=== PATIENT | female | born 1995 | race Caucasian/White ===

== ENCOUNTER 2018-08-23 11:30 | Emergency (ER) | payer MEDICAID ==
[~2018-08-23] VITALS: Ht 147.3 cm; Wt 59.0 kg
--- NOTE | 2018-08-23 12:20 | NUR ---
PT SELF-CATHETERIZED SELF THROUGH THE UMBILICUS FOR URINE SAMPLE.
--- NOTE | 2018-08-23 12:23 | NUR ---
SARAVANAN BOLANOS AT BEDSIDE FOR MSE.
[2018-08-23 12:39] LABS: *BILIRUBIN,URIN NEGATIVE (NEGATIVE); *BLOOD, URINE 2+ (NEGATIVE); *CLARITY,URINE CLOUDY (CLEAR); *COLOR,URINE YELLOW (YELLOW); *KETONES,URINE NEGATIVE (NEGATIVE); *UROBILINOGEN,URINE 0.2 E.U./dl (NORMAL); LEUKOCYTE ESTERASE ,URINE 3+ (NEGATIVE); NITRITE, URINE NEGATIVE (NEGATIVE); PH,URINE 7.5 (5.0-8.0); UGLUCOSE NEGATIVE (NEGATIVE)
[2018-08-23 12:41] LABS: *URINE HCG, QUAL NEGATIVE (NEGATIVE)
[2018-08-23 12:47] LABS: BACTERIA,URINE MANY /HPF (NONE SEEN); RBC,URINE 20-50 /HPF (0-3); SQUAMOUS EPITHELIAL CELL,UR MANY /HPF (NONE SEEN); WBC,URINE TNTC /HPF (0-3)
--- NOTE | 2018-08-23 13:06 | NUR ---
Patient discharged to home in stable conditon. Written and verbal after care instructions given. Patient verbalizes understanding of instructions. ALL BELONGINGS W/ PT.
[2018-08-23 13:10] VITALS: BP 121/72
== END 2018-08-23 13:11 | disposition home or self-care (01) ==
LOC: ER 11:30
DX: N39.0 Urinary tract infection, site not specified (principal)
CPT/HCPCS: 84703; 87077; 87086; A4663

== ENCOUNTER 2020-06-09 10:50 | Emergency (ER) | payer MEDICAID, OTHER ==
[~2020-06-09] VITALS: Ht 147.3 cm; Wt 54.4 kg
--- NOTE | 2020-06-09 11:40 | NUR ---
There still are no ER beds available, MSE done at triage with professor of finance (MICHELLE Walton).
[2020-06-09] MEDS ORDERED: ACETAMINOPHEN 650 MG/20.3 ML LIQUID UDC PO ONE (11:45)
[2020-06-09] MEDS ORDERED: ACETAMINOPHEN 325 MG TABLET ONE (12:05)
[2020-06-09 12:24] LABS: BASOPHILS # (AUTO) 0.2 K/uL (0.0-8.0); BASOPHILS % (AUTO) 1.8 % (0.0-2.0); EOSINOPHILS # (AUTO) 0.4 K/uL (0.0-0.7); EOSINOPHILS % (AUTO) 4.8 % (0.0-7.0); HEMATOCRIT 37.7 % (31.2-41.9); HEMOGLOBIN 12.1 g/dL (10.9-14.3); LYMPHOCYTES # (AUTO) 1.3 K/uL (20.0-40.0); LYMPHOCYTES % (AUTO) 15.6 % (20.5-51.5); MEAN CORPUSCULAR HEMOGLOBIN 26.8 uug (24.7-32.8); MEAN CORPUSCULAR HGB CONC 32 g/dL (32.3-35.6); MEAN CORPUSCULAR VOLUME 83.6 fL (75.5-95.3); MONOCYTES # (AUTO) 0.4 K/uL (2.0-10.0); NEUTROPHILS # (AUTO) 6.2 K/uL (1.8-8.9); NEUTROPHILS % (AUTO) 72.8 % (38.5-71.5); PLATELET COUNT (AUTO) 297 K/uL (179-408); RED BLOOD CELL COUNT(AUTO) 4.52 MIL/uL (3.63-4.92); WHITE BLOOD COUNT (AUTO) 8.5 K/uL (3.8-11.8)
[2020-06-09 12:37] LABS: CARBON DIOXIDE 20 mmol/L (21-32); CHLORIDE 103 mmol/L (98-107); CREATININE 0.4 mg/dL (0.6-1.3); GLUCOSE 96 mg/dL (74-106); UREA NITROGEN, BLOOD 16 mg/dL (7-18)
[2020-06-09 13:15] LABS: *URINE HCG, QUAL NEG (NEGATIVE)
--- NOTE | 2020-06-09 16:27 | NUR ---
Patient discharged to home in stable condition. Written and verbal after care instructions given. Patient verbalizes understanding of instructions. Stressed follow up or return to ER for worsening s/s.
== END 2020-06-09 16:28 | disposition home or self-care (01) ==
LOC: ER 10:50
DX: N63.21 Unspecified lump in the left breast, upper outer quadrant (principal); Q05.4 Unspecified spina bifida with hydrocephalus; Z98.2 Presence of cerebrospinal fluid drainage device; K59.2 Neurogenic bowel, not elsewhere classified; F79 Unspecified intellectual disabilities
CPT/HCPCS: 36415; 76642; 84703; 85025; A4663

== ENCOUNTER 2020-10-20 11:18 | Inpatient (IN) | payer OTHER ==
[~2020-10-20] VITALS: Ht 152.4 cm; Wt 54.4 kg
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
[2020-10-20] MEDS ORDERED: IV NORMAL SALINE 1000 ML BAG IV ONE (12:00)
[2020-10-20] MEDS ORDERED: ONDANSETRON 4 MG/2 ML VIAL IV ONE (12:00)
--- NOTE | 2020-10-20 12:30 | NUR ---
Examine by r/oo tanisha ineserted ango cath# 20 on ac blood drow blood drow cxray done ivf ns wide open infused and patent zofran 4mg ivp given
[2020-10-20] MEDS ORDERED: ONDANSETRON 4 MG/2 ML VIAL ONE (12:35)
[2020-10-20 12:55] LABS: BASOPHILS % (AUTO) 0.1 % (0.0-2.0); EOSINOPHILS # (AUTO) 0.1 K/uL (0.0-0.7); EOSINOPHILS % (AUTO) 1.3 % (0.0-7.0); HEMATOCRIT 35.6 % (31.2-41.9); HEMOGLOBIN 11.4 g/dL (10.9-14.3); LYMPHOCYTES # (AUTO) 1.1 K/uL (20.0-40.0); LYMPHOCYTES % (AUTO) 20.2 % (20.5-51.5); MEAN CORPUSCULAR HEMOGLOBIN 26.3 uug (24.7-32.8); MEAN CORPUSCULAR HGB CONC 32 g/dL (32.3-35.6); MEAN CORPUSCULAR VOLUME 82.3 fL (75.5-95.3); MONOCYTES # (AUTO) 0.3 K/uL (2.0-10.0); MONOCYTES % (AUTO) 5.8 % (0.0-11.0); NEUTROPHILS # (AUTO) 3.9 K/uL (1.8-8.9); NEUTROPHILS % (AUTO) 72.6 % (38.5-71.5); PLATELET COUNT (AUTO) 289 K/uL (179-408); RED BLOOD CELL COUNT(AUTO) 4.32 MIL/uL (3.63-4.92); WHITE BLOOD COUNT (AUTO) 5.4 K/uL (3.8-11.8)
[2020-10-20 13:01] LABS: CARBON DIOXIDE 23 mmol/L (21-32); CHLORIDE 107 mmol/L (98-107); CREATININE 0.5 mg/dL (0.6-1.3); GLUCOSE 96 mg/dL (74-106); POTASSIUM 4.5 mmol/L (3.5-5.1); UREA NITROGEN, BLOOD 23 mg/dL (7-18)
--- NOTE | 2020-10-20 13:04 | NUR ---
received COVID result from Rhona from lab: Result - covid (+)
[2020-10-20 13:07] LABS: ALANINE AMINOTRANSFERASE 13 U/L (14-59); ALKALINE PHOSPHATASE 76 U/L (50-136); ASPARTATE AMINOTRANSFERASE 19 U/L (15-37); BILIRUBIN,DIRECT < 0.1 mg/dL (0.0-0.2); BILIRUBIN,TOTAL 0.2 mg/dL (0.2-1.0); TOTAL PROTEIN, SERUM 8.5 g/dL (6.4-8.2)
--- NOTE | 2020-10-20 14:00 | NUR ---
incerted I&O CATH FR # 15 SSUPRABUBIC CATHETER NO SDIFFECLUTY DRANING URIN COUDY YELLOW COLOR UA ND UC SENT TO LAB
--- NOTE | 2020-10-20 14:30 | NUR ---
IV 1000ml NS finished infusing at this time.
--- NOTE | 2020-10-20 15:00 | NUR ---
pt refused to be ADMITED INPT AND REQUSTED TO SIGN aAMA
[2020-10-20 15:36] LABS: *CLARITY,URINE TURBID (CLEAR); *COLOR,URINE YELLOW (YELLOW)
[2020-10-20 15:37] LABS: *BILIRUBIN,URIN NEGATIVE (NEGATIVE); *BLOOD, URINE 2+ (NEGATIVE); *KETONES,URINE NEGATIVE (NEGATIVE); *UROBILINOGEN,URINE 0.2 E.U./dl (NORMAL); LEUKOCYTE ESTERASE ,URINE 3+ (NEGATIVE); NITRITE, URINE NEGATIVE (NEGATIVE); UGLUCOSE NEGATIVE (NEGATIVE)
[2020-10-20 15:43] LABS: BACTERIA,URINE MANY /HPF (NONE SEEN); SQUAMOUS EPITHELIAL CELL,UR MODERATE /HPF (NONE SEEN); URINE AMORPHOUS PHOSPHATES MODERATE /HPF; WBC,URINE 20-50 /HPF (0-3)
[2020-10-20] MEDS ORDERED: IV NORMAL SALINE 250 ML IV ONE (15:58)
[2020-10-20] MEDS ORDERED: SWABABLE VALVE TRANSFER SET EA MC ONE (15:58)
[2020-10-20] MEDS ORDERED: IOHEXOL 350 100 ML INFUS..BTL ONE (15:58)
[2020-10-20] MEDS ORDERED: levoFLOXacin 500 MG TABLET PO ONE (16:15)
[2020-10-20] MEDS ORDERED: levoFLOXacin 500 MG TABLET ONE (16:29)
--- NOTE | 2020-10-20 16:45 | NUR ---
pt sign concent for CTA IV CATHETER #2 ON LT FOR ARM PATENT WILL
--- NOTE | 2020-10-20 17:11 | NUR ---
to cta via arelis cooney vs
[2020-10-20] MEDS ORDERED: HYDROCODONE/APAP 10-325 MG TABLET PO ONE (18:15)
--- NOTE | 2020-10-20 18:58 | NUR ---
PT HAD ROOM PLAN TO be admit inpt
--- NOTE | 2020-10-20 19:00 | NUR ---
HAND OFF TO MARLENI MARTINEZ
--- NOTE | 2020-10-20 19:00 | NUR ---
Note [email or web address] in ED - 10/20/20 at 1915 by BRANDY Recieved pt in bed with mother, patient is noted to be calm.
--- NOTE | 2020-10-20 19:05 | NUR ---
Patricia hardwick in ED - 10/20/[address] at [address] Maldonado at bedside, examined both nostrils, no foreign body noted. Mother at bedside.
[2020-10-20] MEDS ORDERED: ACETAMINOPHEN 325 MG TABLET PO ONE (19:45)
[2020-10-20] MEDS ORDERED: ACETAMINOPHEN 325 MG TABLET ONE (19:53)
--- NOTE | 2020-10-20 20:38 | NUR ---
Gave report to Ben from tele, pt going to room 318.
--- NOTE | 2020-10-20 21:00 | NUR ---
Patient received from ER. Awake, alert and oriented x 3 to person, place, and time. Patient on TELE, sinus tach. Comfortable on room air, saturating at 99%. No reports of shortness of breath. Skin intact. 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 Pt does self catheterization every 3 hours. Bowel sounds active in all quadrants. No reports of pain at this time. No signs of distress. Bed in low and locked position. Safety precautions in place. Call light within reach.
[2020-10-20 21:50] VITALS: BP 117/89
[2020-10-20] MEDS ORDERED: ACETAMINOPHEN 325 MG TABLET PO PRN (22:00)
[2020-10-20] MEDS ORDERED: ALBUTEROL SULFATE 8 GM HFA.AER.AD IH PRN (22:00)
[2020-10-20] MEDS ORDERED: ONDANSETRON 4 MG/2 ML VIAL IV PRN (22:00)
[2020-10-20] MEDS: ENOXAPARIN SODIUM 40 MG/0.4 ML DISP.SYRIN SQ SCH (23:18)
[2020-10-21 00:05] VITALS: BP 105/74
[2020-10-21 04:25] VITALS: BP 118/83
[2020-10-21 06:17] LABS: BASOPHILS % (AUTO) 0.4 % (0.0-2.0); EOSINOPHILS # (AUTO) 0.1 K/uL (0.0-0.7); EOSINOPHILS % (AUTO) 1.3 % (0.0-7.0); HEMATOCRIT 31.4 % (31.2-41.9); HEMOGLOBIN 10.3 g/dL (10.9-14.3); LYMPHOCYTES # (AUTO) 1.1 K/uL (20.0-40.0); LYMPHOCYTES % (AUTO) 26.9 % (20.5-51.5); MEAN CORPUSCULAR HEMOGLOBIN 26.5 uug (24.7-32.8); MEAN CORPUSCULAR HGB CONC 33 g/dL (32.3-35.6); MEAN CORPUSCULAR VOLUME 80.8 fL (75.5-95.3); MONOCYTES # (AUTO) 0.3 K/uL (2.0-10.0); NEUTROPHILS # (AUTO) 2.5 K/uL (1.8-8.9); NEUTROPHILS % (AUTO) 63.4 % (38.5-71.5); PLATELET COUNT (AUTO) 275 K/uL (179-408); RED BLOOD CELL COUNT(AUTO) 3.88 MIL/uL (3.63-4.92)
[2020-10-21 06:26] LABS: BILIRUBIN,TOTAL 0.2 mg/dL (0.2-1.0); CREATININE 0.6 mg/dL (0.6-1.3); MAGNESIUM 2.1 mg/dL (1.8-2.4); PHOSPHOROUS 2.8 mg/dL (2.5-4.9); POTASSIUM 4.1 mmol/L (3.5-5.1); TOTAL PROTEIN, SERUM 7.4 g/dL (6.4-8.2)
--- NOTE | 2020-10-21 06:57 | NUR ---
Patient is awake, alert and oriented x 3. Patient slept well. On TELE, sinus rhythm. comfortable on room air. No reports of pain or shortness of breath. Patient did a self catheterization over night, output of 350ml. Safety precautions in place. Call light within reach.
[2020-10-21 11:54] VITALS: BP 113/80
[2020-10-21] MEDS ORDERED: CHOL500062 PO (13:36)
[2020-10-21] MEDS: levoFLOXacin 500 MG TABLET PO SCH (15:08)
[2020-10-21 15:33] VITALS: BP 126/88
--- NOTE | 2020-10-21 16:06 | NUR ---
Pt awake, alert, able to verbalize needs. Pt denies pain/discomfort at this time. No acute distress, no SOB noted. VSS. Pt O2 saturation 99% on RA. Pt afebrile. Pt able to self-catheterize via navel opening, output documented, urine appears yellow with some sediment noted. Bowel sounds active, no BM. L FA 20 g and R AC 20 g PIVs intact and patent. Dr. Kay and Dr. Robby Cox at bedside today, examined pt, report given. Safety measures and fall precautions in place. Call light and belongings within reach. Continue plan of care.
--- NOTE | 2020-10-21 18:50 | NUR ---
Pt finishing dinner, no acute distress. Pt stated she missed her mother. Encouraged pt to expressed feelings, reassurance provided PRN. Pt denies pain/discomfort. Safety maintained. Will endorse to production supervisor off shift nurse for continuity of care.
[2020-10-21 20:15] VITALS: BP 112/79
[2020-10-21] MEDS: ENOXAPARIN SODIUM 40 MG/0.4 ML DISP.SYRIN SQ SCH (20:43)
[2020-10-21] MEDS ORDERED: FLEET ENEMA 133 ML BOTTLE RC PRN (23:15)
[2020-10-22 00:03] VITALS: BP 94/69
[2020-10-22 04:15] VITALS: BP 109/73
--- NOTE | 2020-10-22 06:55 | NUR ---
Patient resting in bed. No s/s of acute distress noted at this time. On RA denies SOB, O2 Sat @ 99%. interventional nurse in place, sinus rhythm and tachy to 110s. Notified Eris Saenz DNP of patients routine fleet enema via ostomy and new orders given to continue routine enema. Offered enema to patient, refused to have administered until later in the morning or afternoon, will endorse to oncoming nurse. Safety measures and isolation precautions in place.
[2020-10-22 08:25] VITALS: BP 106/69
[2020-10-22] MEDS ORDERED: CHOLECALCIFEROL 1,000 UNIT TABLET PO SCH (09:00)
[2020-10-22 11:48] VITALS: BP 92/54
[2020-10-22 14:30] VITALS: BP 113/75
[2020-10-22] MEDS: levoFLOXacin 500 MG TABLET PO SCH (16:25)
--- NOTE | 2020-10-22 19:20 | NUR ---
Discharge instructions provided to the patient with verbalized understanding. Discharge papers signed by and given to the patient. Patient is alert, oriented x 3, not in any form of distress on room air. She denies any pain or discomfort. All belongings well accounted for. Assisted patient to the lobby via wheelchair. Discharged patient to home picked up by brother Said via private car.
== END 2020-10-22 19:15 | disposition home or self-care (01) | DRG 137 ==
LOC: ER 11:18 → TELE3 20:20
PROVIDERS: ADMIT Hospitalist
DX: U07.1 COVID-19 (principal); J12.82 Pneumonia due to coronavirus disease 2019; G71.09 Other specified muscular dystrophies; G82.20 Paraplegia, unspecified; M41.9 Scoliosis, unspecified; K59.2 Neurogenic bowel, not elsewhere classified; N13.6 Pyonephrosis; D64.9 Anemia, unspecified; B36.0 Pityriasis versicolor; E04.1 Nontoxic single thyroid nodule; Z98.2 Presence of cerebrospinal fluid drainage device; Z87.440 Personal history of urinary (tract) infections; M81.0 Age-related osteoporosis without current pathological fracture; F79 Unspecified intellectual disabilities; N31.9 Neuromuscular dysfunction of bladder, unspecified; Q05.4 Unspecified spina bifida with hydrocephalus; B96.20 Unspecified Escherichia coli [E. coli] as the cause of diseases classified elsewhere
CPT/HCPCS: 36415; 70450; 71045; 71275; 83605; 83615; 83735; 84100; 85025; 85730; 86140; 86403; 87040; 87070; 87077; 87086; 93005; C1758; G0378; J1650; J2405; J3535; J7050; Q9967

== ENCOUNTER 2021-09-11 09:27 | Emergency (ER) | payer OTHER ==
[~2021-09-11] VITALS: Ht 149.9 cm; Wt 54.4 kg
[~2021-09-11 09:27] MED LIST: CHOL500062 PO
--- NOTE | 2021-09-11 09:38 | NUR ---
Dr Dickson at the bedside for MSE.
--- NOTE | 2021-09-11 09:38 | NUR ---
[email or web address], medical screening exam in progress
[2021-09-11] MEDS ORDERED: KETOROLAC TROMETHAMINE 30 MG INJ ONE (09:52)
[2021-09-11] MEDS ORDERED: KETOROLAC TROMETHAMINE 15 MG INJ IVP ONE (10:00)
[2021-09-11] MEDS ORDERED: IV NORMAL SALINE 500 ML BAG IV ONE (10:00)
[2021-09-11 10:03] LABS: HEMATOCRIT 43.3 % (31.2-41.9); MEAN CORPUSCULAR HEMOGLOBIN 26.1 uug (24.7-32.8); MEAN CORPUSCULAR VOLUME 78.6 fL (75.5-95.3); PLATELET COUNT (AUTO) 515 K/uL (179-408)
[2021-09-11 10:06] LABS: *BILIRUBIN,URIN NEGATIVE (NEGATIVE); *BLOOD, URINE 3+ (NEGATIVE); *CLARITY,URINE CLOUDY (CLEAR); *COLOR,URINE YELLOW (YELLOW); *KETONES,URINE TRACE (NEGATIVE); *UROBILINOGEN,URINE 0.2 E.U./dl (NORMAL); LEUKOCYTE ESTERASE ,URINE 3+ (NEGATIVE); NITRITE, URINE NEGATIVE (NEGATIVE); PH,URINE 7.5 (5.0-8.0); UGLUCOSE NEGATIVE (NEGATIVE)
--- NOTE | 2021-09-11 10:15 | NUR ---
Patient is resting comfortably on gurney with [email or web address].
[2021-09-11 10:29] LABS: *URINE HCG, QUAL NEG (NEGATIVE)
[2021-09-11 10:32] LABS: POTASSIUM 4.6 mmol/L (3.5-5.1)
[2021-09-11 10:38] LABS: BILIRUBIN,DIRECT 0.1 mg/dL (0.0-0.2); BILIRUBIN,TOTAL 0.4 mg/dL (0.2-1.0); TOTAL PROTEIN, SERUM 9.6 g/dL (6.4-8.2)
[2021-09-11 11:40] LABS: WBC,URINE 20-50 /HPF (0-3)
[2021-09-11 11:41] LABS: BACTERIA,URINE MODERATE /HPF (NONE SEEN); SQUAMOUS EPITHELIAL CELL,UR MODERATE /HPF (NONE SEEN)
[2021-09-11 11:42] LABS: TRIPLE PHOSPHATE CRYSTAL,UR FEW /HPF (NONE SEEN); URINE AMORPHOUS PHOSPHATES MANY /HPF
--- NOTE | 2021-09-11 11:48 | NUR ---
Copies of ER tests' results were printed and handed to patient's mother.
[2021-09-11] MEDS ORDERED: NITR100C6 PO (11:51)
--- NOTE | 2021-09-11 12:10 | NUR ---
IV removed. Catheter intact and site benign. Pressure and 4x4 gauze applied to site. No bleeding noted. Patient discharged to home in stable condition. Written and verbal after care instructions given to patient and mother. Patient and family verbalized understanding and compliance of instructions. Stressed follow up with primary doctor or return to ER for worsening s/s.
== END 2021-09-11 12:10 | disposition home or self-care (01) ==
LOC: ER 09:27
DX: N39.0 Urinary tract infection, site not specified (principal); K56.7 Ileus, unspecified; E86.0 Dehydration; Z87.440 Personal history of urinary (tract) infections; N13.30 Unspecified hydronephrosis; N20.0 Calculus of kidney; M41.9 Scoliosis, unspecified; R29.90 Unspecified symptoms and signs involving the nervous system
CPT/HCPCS: 36415; 74176; 80048; 80076; 81001; 83690; 84703; 85025; 87086; 96374; 99284; J1885; 87077; A4663; J7040

== ENCOUNTER 2024-02-09 10:00 | Emergency (ER) | payer OTHER ==
[~2024-02-09] VITALS: Ht 152.4 cm; Wt 38.6 kg
[~2024-02-09 10:00] MED LIST changes: +NITR100C6 PO
[2024-02-09 10:17] VITALS: O2SAT 99
[2024-02-09] MEDS ORDERED: METO50TA16 PO (10:33)
[2024-02-09] MEDS ORDERED: NEOMY/BACITRA/POLYMYXIN B OINT UD PACKET TP ONE (10:57)
[2024-02-09] MEDS ORDERED: CLOT15CR5 TP (10:58)
[2024-02-09] MEDS ORDERED: MUPI15CR TP (10:58)
== END 2024-02-09 11:18 | disposition home or self-care (01) ==
LOC: ER 10:00
DX: L89.321 Pressure ulcer of left buttock, stage 1 (principal); L22 Diaper dermatitis; Z98.890 Other specified postprocedural states; Z79.899 Other long term (current) drug therapy
CPT/HCPCS: A4606; A4663

== ENCOUNTER 2024-05-12 10:15 | Emergency (ER) | payer OTHER ==
[~2024-05-12] VITALS: Ht 121.9 cm; Wt 25.4 kg
[~2024-05-12 10:15] MED LIST changes: +CLOT15CR5 TP; +METO50TA16 PO; +MUPI15CR TP; -NITR100C6 PO
[2024-05-12 11:26] LABS: BASOPHILS # (AUTO) 0.1 K/UL (0.0-0.2); BASOPHILS % (AUTO) 0.6 % (0.0-2.0); EOSINOPHILS # (AUTO) 0.1 K/uL (0.0-0.7); HEMATOCRIT 31.4 % (31.2-41.9); HEMOGLOBIN 9.5 g/dL (10.9-14.3); LYMPHOCYTES # (AUTO) 2.1 K/uL (0.8-4.8); LYMPHOCYTES % (AUTO) 16.6 % (20.5-51.5); MEAN CORPUSCULAR HEMOGLOBIN 21.1 uug (24.7-32.8); MEAN CORPUSCULAR HGB CONC 30 g/dL (32.3-35.6); MEAN CORPUSCULAR VOLUME 69.4 fL (75.5-95.3); MONOCYTES # (AUTO) 0.6 K/uL (0.1-1.30); MONOCYTES % (AUTO) 4.8 % (0.0-11.0); NEUTROPHILS # (AUTO) 9.6 K/uL (1.8-8.9); PLATELET COUNT (AUTO) 700 K/uL (179-408); RED BLOOD CELL COUNT(AUTO) 4.53 MIL/uL (3.63-4.92); RED CELL DISTRIBUTION WIDTH 25.5 % (12.3-17.7); WHITE BLOOD COUNT (AUTO) 12.5 K/uL (3.8-11.8)
[2024-05-12 11:40] LABS: ALBUMIN 2.6 g/dL (3.4-5.0); BILIRUBIN,DIRECT 0.1 mg/dL (0.0-0.2); BILIRUBIN,TOTAL 0.2 mg/dL (0.2-1.0); CALCIUM 9.8 mg/dL (8.5-10.1); CREATININE 0.6 mg/dL (0.6-1.3); POTASSIUM 4.5 mmol/L (3.5-5.1); TOTAL PROTEIN, SERUM 9.4 g/dL (6.4-8.2)
[2024-05-12 12:49] LABS: DIFFERENTIAL COMMENT 1
[2024-05-12] MEDS ORDERED: METRONIDAZOLE 500 MG TABLET ONE (13:08)
[2024-05-12] MEDS ORDERED: levoFLOXacin 500 MG/D5W 100 ML ONE (13:08)
[2024-05-12] MEDS: METRONIDAZOLE 500 MG TABLET PO ONE (13:16)
[2024-05-12] MEDS: levoFLOXacin 500 MG/D5W 100ML PIGGYBACK IV ONE (13:16)
[2024-05-12] MEDS ORDERED: LEVO500T90 PO (14:18)
[2024-05-12] MEDS ORDERED: METR500T PO (14:18)
[2024-05-12 14:37] VITALS: BP 127/86; O2SAT 99
== END 2024-05-12 14:40 | disposition home or self-care (01) ==
LOC: ER 10:15
DX: L89.323 Pressure ulcer of left buttock, stage 3 (principal); G82.20 Paraplegia, unspecified; Q05.9 Spina bifida, unspecified; Z79.899 Other long term (current) drug therapy; Z98.2 Presence of cerebrospinal fluid drainage device; Z88.7 Allergy status to serum and vaccine
CPT/HCPCS: 99284; 96365; 97597; 80076; 80048; 85025; 87040; 36415; 83605; J1956; A4606; A4663